=== PATIENT | male | born 1965 | race Two or more races ===

== ENCOUNTER 2016-09-29 14:50 | Emergency (ER) | payer OTHER ==
[2016-09-29] MEDS ORDERED: LET GEL TOPICAL 1 EA SYR TP ONE ×2 (15:13→15:14)
[2016-09-29 15:15] VITALS: PULSE 72; RESP 16; TEMP 98.6
--- NOTE | 2016-09-29 15:22 | EDPHY ---
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 He complains of minimal pain. He denies any distal numbness or tingling. He is ambulatory. His last tetanus shot was 5 years ago. He denies other pain or injury. REVIEW OF SYSTEMS: As in HPI, and all other systems reviewed and are negative Smoking Status: Former smoker Physical Exam: General Appearance: Alert and no distress. Eyes: Pupils equal and round no injection. Musculoskeletal: Neck is supple and nontender. Extremities: Right cristina with Bowel X shaped skin tear over the distal tibia, DP and PT pulses 2+ and equal bilaterally, distal sensation intact, distal cap refill less than 3 seconds. Skin: No rashes with lesions as above. Constitutional: Initial Vital Signs Temperature (C) 37 C 09/29/16 14:52 Heart Rate 72 09/29/16 14:52 Respiratory Rate 16 09/29/16 14:52 Blood Pressure 128/73 H 09/29/16 14:52 O2 Sat (%) 94 09/29/16 14:52 O2 Delivery Mode Room Air Allergies/Adverse Reactions: No Known Allergies Allergy (Verified 09/29/16 15:16) Home Medications: Medication Instructions Recorded Atenolol 09/29/16 LISINOPRIL/HYDROCHLOROTHIAZIDE 09/29/16 Lexapro 09/29/16 MDM/Departure - MDM Medications Given: Discontinued Medications Tetracaine/Epinephrine/Lidocaine (Let Gel Topical) 1 ea TP EDNOW ONE Stop: 09/29/16 15:14 Last Admin: 09/29/16 15:16 Dose: 1 ea ED Course/Re-evaluation: 51-year-old man presents with skin tear heard from a metal dumpster. His tetanus immunization is up-to-date. The wound was anesthetized with topical let and copiously irrigated. It was then explored. There was a thin bruised flap with possible viability however given the skin tension in location and the superficialness of the skin tear I felt this wound would heal best by secondary intention. Wound is covered with Mepilex and the patient is referred to workman 's Comp for follow-up. We discussed home care and return precautions including signs and symptoms of infection. Patient expressed verbal understanding of plan. - Depart Disposition: Home, Routine, Self-Care Clinical Impression: Skin tear of right lower leg without complication Qualifiers: Encounter type: initial encounter Qualified Code(s): S81.811A - Laceration without foreign body, right lower leg, initial encounter Clinical Impression: (Ruled Out): Laceration Condition: Good Instructions: Skin Tear (ED) Additional Instructions: You were seen by Dr. Kalyn Brownlee today. Keep dressing on for the next 5 days. When she removed the he may cover the wound with Aquaphor or antibiotic ointment and a nonadherent gauze dressing. Please follow up with workmen's comp. Return for any worsening or new concerns. Referrals: UNKNOWN,UNKNOWN [Other] - As per Instructions
[2016-09-29 16:01] VITALS: BP 122/76; O2SAT 96
== END 2016-09-29 15:58 | disposition home or self-care (01) ==
LOC: CED 14:50
DX: S81.811A Laceration without foreign body, right lower leg, initial encounter (principal); I10 Essential (primary) hypertension; Z87.891 Personal history of nicotine dependence; W22.8XXA Striking against or struck by other objects, initial encounter